=== PATIENT | female | born 1995 | race African-American/Black ===

== ENCOUNTER 2016-10-25 20:29 | Emergency (ER) | payer OTHER ==
[~2016-10-25] VITALS: Ht 152.4 cm; Wt 70.9 kg
[2016-10-25] MEDS ORDERED: TRINESSA 281 TAB PO (20:33)
[2016-10-25 21:36] LABS: INFLUENZA B NEGATIVE
[2016-10-25 21:57] VITALS: BP 129/66; PULSE 110; TEMP 100.9
== END 2016-10-25 22:06 | disposition home or self-care (01) ==
LOC: COL.ER 20:29
PROVIDERS: Physician Assistant
DX: J11.1 Influenza due to unidentified influenza virus with other respiratory manifestations (principal)